=== PATIENT | male | born 1965 | race Caucasian/White ===

== ENCOUNTER 2020-09-19 12:56 | Day surgery (SDC) | payer OTHER, SELFPAY ==
[~2020-09-19] VITALS: Ht 175.3 cm; Wt 63.5 kg
[2020-09-19] MEDS ORDERED: OXYMETAZOLINE HCL 0.05% NASAL SPRAY NS ONE (14:10)
[2020-09-19] MEDS ORDERED: DEXAMETHASONE SOD PHOSPHATE 4 MG/ML VIAL IVP ONE (14:10)
[2020-09-19] MEDS ORDERED: ONDANSETRON HCL 4 MG/2 ML VIAL IVP ONE (14:10)
[2020-09-19] MEDS ORDERED: PROPOFOL 200MG/ 20ML VIAL (DIPRIVAN) IV ONE (14:10)
[2020-09-19] MEDS ORDERED: NS IRRIG SOLN 1000 ML IR ONE (14:10)
[2020-09-19] MEDS ORDERED: LR 500 ML IV.SOLN IV ONE (14:10)
[2020-09-19] MEDS ORDERED: SEVOFLURANE 15 MIN GAS INH ONE (14:10)
[2020-09-19] MEDS ORDERED: METOCLOPRAMIDE HCL 10 MG/2 ML VIAL IVP PRN (14:45)
[2020-09-19] MEDS ORDERED: KETOROLAC TROMETHAMINE 30 MG VIAL IVP PRN (14:45)
[2020-09-19] MEDS ORDERED: HYDROmorphone 1 INJ. 1 MG/ML CARTRIDGE IVP PRN (14:45)
[2020-09-19] MEDS ORDERED: ACETAMINOPHEN/CODEINE 300 MG-30 MG TABLET PO PRN (14:45)
[2020-09-19 16:52] VITALS: BP_SYST 121
== END 2020-09-19 16:52 | disposition home or self-care (01) ==
LOC: SMU 12:56 → SDS 12:56
PROVIDERS: ATTEND Otolaryngology Plastic Surgery within the Head & Neck
DX: H69.81 Other specified disorders of Eustachian tube, right ear (principal); J34.2 Deviated nasal septum; J32.9 Chronic sinusitis, unspecified; H65.91 Unspecified nonsuppurative otitis media, right ear; J30.9 Allergic rhinitis, unspecified
CPT/HCPCS: 36415; 69705; 87426; C1726; J1100; J2405; J2704; J7120